=== PATIENT | male | born 1970 | race Caucasian/White ===

== ENCOUNTER 2018-10-21 01:48 | Inpatient (IN) | payer OTHER ==
[~2018-10-21] VITALS: Ht 188 cm; Wt 94.2 kg
[~2018-10-21 01:48] MED LIST: LEVO500T10 PO; METR500T PO
[2018-10-21 02:13] VITALS: Ht 188 cm; Wt 94.2 kg
[2018-10-21 02:36] VITALS: BP 122/79; PULSE 56; RESP 20
[2018-10-21] MEDS ORDERED: ONDANSETRON 4 MG INJ IV PRN (05:00)
[2018-10-21] MEDS ORDERED: ACETAMINOPHEN 325 MG TAB PO PRN (05:00)
[2018-10-21] MEDS: DEXTROSE 5%-0.9% NACL 1,000 ML IV SCH ×3 (05:24→22:01)
[2018-10-21] MEDS: morphine 4 MG/ML VIAL IV PRN ×5 (05:24→21:58)
[2018-10-21] MEDS: metroNIDAZOLE 500 MG/NS (PMX) 100 ML IVPB SCH ×3 (05:27→21:58)
[2018-10-21] MEDS: PANTOPRAZOLE 40 MG INJ IV SCH (05:29)
[2018-10-21] MEDS: PIPER-TAZO 3.375 GM IV (PMX) 100 ML IVPB SCH ×3 (06:54→17:40)
[2018-10-21 07:48] VITALS: BP 111/73; PULSE 63; RESP 19
--- NOTE | 2018-10-21 12:12 | QN ---
Documentation Comment PT SEEN AND EXAMINED DIVINA MUNSON MD Oct 21, 2018 12:12
[2018-10-21 14:26] VITALS: BP 131/63; PULSE 97; RESP 18
[2018-10-21 14:32] VITALS: BP 118/73; PULSE 69; RESP 19
--- NOTE | 2018-10-21 15:18 | CONS ---
DATE OF ADMISSION: 10/21/2018 DATE OF CONSULTATION: 10/21/2018 TYPE OF CONSULTATION: Gastroenterology. HISTORY OF PRESENT ILLNESS: A 48-year-old male went to the emergency room at [facility] com plaining of left lower quadrant abdominal pain. The patient was evaluated in the [facility] with diagnosis of diverticulitis and pyelonephritis made. There was also concern regarding a colove sical fistula. The patient states he is passing air also when he urinates, but no stool is coming ou t. No nausea, no vomiting, no chest pain, no shortness of breath. He does complain of fever with ch ills. 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 FAMILY HISTORY: Nothing significant. SOCIAL HISTORY: Does not drink or smoke. ALLERGIES: NONE. REVIEW OF SYSTEMS: Otherwise negative. PHYSICAL EXAMINATION: GENERAL: Well-built, nourished, not in distress. VITAL SIGNS: Stable. HEENT: Unremarkable. NECK: Supple. No thyromegaly, no lymphadenopathy. CARDIOVASCULAR: No murmur, gallop or click. LUNGS: Clear. ABDOMEN: Soft. Tenderness in the left lower quadrant. No mass felt per abdomen. Bowel sounds are good. EXTREMITIES: No edema. CENTRAL NERVOUS SYSTEM: Grossly within normal limits. LABORATORY DATA: Urine analysis shows WBC greater than 100, RBCs 50 to 100. Urine was cloudy. Leuk ocyte esterase was positive. Mucus plus. WBC count here is 9000. GFR was 62. WBC at [facility] s 15.7. IMPRESSION: 1. Acute diverticulitis. 2. Pyelonephritis. 3. Possible colovesical fistula. PLAN: 1. To continue antibiotic. 2. Once the patient's condition improves, then we will start the patient on a liquid diet and advanc e it. 3. The patient will need a surgical consult for colovesical fistula. Dictated By: EM GIORDANO MD PJ/NTS Conf#: [id number] DID#: [id number] CC: CAREY NOE MD; BINDU MCCAULEY MD;*EndCC*
--- NOTE | 2018-10-21 15:32 | HP ---
DATE OF ADMISSION: 10/21/2018 REASON FOR ADMISSION: Transferred from [facility] due to diverticulitis. HISTORY OF PRESENTING ILLNESS: A 48-year-old male with past medical history of kidney stones, zay mendoza to emergency department of [facility] on 10/20/2018 secondary to severe abdominal pain and left lower quadrant for the last 4 to 5 days. According to the patient, he has had history of kidne y stones. He thought that the pain is because of kidney stones; however, pain was very sharp and lana y persistent. It was in the left lower quadrant and made him worried and came to the emergency depar tment at [facility]. He has been having episodes of nausea, vomiting and diarrhea. According to the patient, he also noticed that he was having air bubbles through his urine. On arrival at [facility], his temperature was 100.7, pulse 106, respirations 20, blood pressure 141/87. The pa tient had labs which showed a potassium of 3.1, BUN of 14, creatinine 1.3. AST, ALT are normal. Lac chung of 1.5. UA showed 100 WBC, 5200 RBCs consistent with UTI and hematuria. The patient also had C T of the abdomen and pelvis that showed mild to moderate sigmoid diverticulitis, has colovesical fist alan and pyelonephritis on the left side. The patient was given Tylenol, IV Zofran, Toradol, morphine , Flagyl, Rocephin, Zosyn and was transferred here due to insurance reasons. PAST MEDICAL HISTORY: Significant for kidney stones, knee surgery and left humerus surgery. ALLERGIES: NONE. PAST SURGICAL HISTORY: Left humerus surgery. SOCIAL HISTORY: Occasionally drinks alcohol. Last drink was a week ago. Denies any smoking, any re creational drug use. FAMILY HISTORY: Noncontributory. The patient works as a green plumber. REVIEW OF SYSTEMS: The patient had severe left lower quadrant pain, episodes of nausea, vomiting, di arrhea, passing bowel gas, had fevers and chills. Denied any dysuria, any urgency, frequency, any he maturia. PHYSICAL EXAMINATION: VITAL SIGNS: Currently temperature 97.1, pulse 56, respirations 20, blood pressure 122/79. GENERAL: The patient is awake, alert, oriented, does not appear to be in any acute distress. HEENT: Pupils are equal, round, reactive to light. NECK: Supple. No JVD. HEART: Regular rate, rhythm. LUNGS: Clear to auscultate bilaterally. ABDOMEN: Some tenderness present at the left lower quadrant and in the epigastric region. Bowel johnnie nds are present. EXTREMITIES: No clubbing, cyanosis or edema. SKIN: The patient has a left humerus surgical scar and multiple tattoos on the chest wall and the ba ck. LABORATORY DATA: Shows BMP within normal limit. White count of 9.7, hemoglobin 13.0, platelet count 173. ASSESSMENT AND PLAN: 1. This is a 48-year-old male who presented with acute abdominal pain, likely secondary to mild to m oderate sigmoid diverticulitis. 2. Air bubbles in the urine with CT scan findings of colovesical fistula. 3. Pyelonephritis on the left side with positive urinalysis. 4. History of kidney stones. 5. History of hypokalemia. PLAN: At this period of time, the patient is admitted to med/surg. The patient will be kept n.p.o., started on IV fluids, Flagyl, Zosyn. We will also check for UA, urine cultures. GI has been consul reji. Urology has been consulted and general surgery will be consulted. Rest of the treatment will d epend on the patient's hospitalization course. Dictated By: DIVINA SINGH/KEENA Conf#: [id number] DID#: [id number] CC: CAREY NOE MD; BINDU MCCAULEY MD;*EndCC*
--- NOTE | 2018-10-21 19:06 | CONS ---
Assessment/Plan Assessment/Plan Hospital Course (Demo Recall) 48-year-old male presented to the emergency room at [facility] with abdominal pain located in the left lower quadrant and radiating toward the left flank area. Patient describes the pain as 10 out of 10 and is associated with the nausea and vomiting as well as diarrhea. The patient underwent a CT scan of the abdomen and pelvis and that was reported as mild to moderate sigmoid diverticulitis and there is resultant colovesical fistula with scattered intramural air bubbles along the superior bladder wall and moderate irregular bladder wall thickening also areas of decreased enhancement within the left kidney with mild perinephric stranding suggestive of pyelonephritis. The patient was transferred to [facility] because of his insurance. On the examination the patient does have left lower quadrant pain as well as left flank pain. The external genitalia are normal. He does urinate dark urine. I tried to load the CD to review his x-rays but it would not load. Impression: Left colo-vesicle fistula. Recommend: Treat the urinary tract infection and once stable she will need resection of the diseased part of the colon. Consultation Date/Type/Reason Admit Date/Time Oct 21, 2018 at 01:48 Date of Consultation: Oct 21, 2018 Type of Consult Urology Reason for Consultation Possible colovesical fistula Requesting Provider: DIVINA MUNSON MD Date/Time of Note DATE: 10/21/18 TIME: 18:54 Hx of Present Illness 48-year-old male presented to the emergency room at [facility] with abdominal pain located in the left lower quadrant and radiating toward the left flank area. Patient describes the pain as 10 out of 10 and is associated with the nausea and vomiting as well as diarrhea. The patient underwent a CT scan of the abdomen and pelvis and that was reported as mild to moderate sigmoid diverticulitis and there is resultant colovesical fistula with scattered intramural air bubbles along the superior bladder wall and moderate irregular bladder wall thickening also areas of decreased enhancement within the left kidney with mild perinephric stranding suggestive of pyelonephritis. The patient was transferred to [facility] because of his insurance. Constitutional: febrile (Temperature 100.7 at the [facility]) Eyes: no complaints ENT: no complaints Respiratory: No shortness of breath Cardiovascular: No chest pain Gastrointestinal: pain (Left side and left lower quadrant), diarrhea, nausea, vomiting Genitourinary: other (Cloudy urine and on multiple occasions pneumaturia) Musculoskeletal: no complaints Skin: no complaints Neurologic: no complaints Endocrine: no complaints Lymphatic: no complaints Psychological: no complaints Past Medical History Medical History: no pertinent history, renal disease (History of kidney stones) Medications Current Medications Dextrose/Sodium Chloride 1,000 ml @ 75 mls/hr [id number] IV Last administered on 10/21/18at 05:24; Admin Dose 75 MLS/HR; Start 10/21/18 at 05:00 Pantoprazole (Protonix Iv) 40 mg DAILY@06 IV Last administered on 10/21/18at 05:29; Admin Dose 40 MG; Start 10/21/18 at 06:00 Acetaminophen (Tylenol Tab) 650 mg Q6H PRN PO MILD PAIN(1-3)OR ELEVATED TEMP; Start 10/21/18 at 05:00 Piperacillin Sod/ Tazobactam Sod 100 ml @ 200 mls/hr Q6 IVPB Last administered on 10/21/18at 17:40; Admin Dose 200 MLS/HR; Start 10/21/18 at 06:00 Metronidazole 100 ml @ 100 mls/hr Q8 IVPB Last administered on 10/21/18at 13:32; Admin Dose 100 MLS/HR; Start 10/21/18 at 06:00 Morphine Sulfate (morphine) 2 mg Q4H PRN IV SEVERE PAIN LEVEL 7-10; Start 10/21/18 at 05:00 Morphine Sulfate (morphine) 4 mg Q4H PRN IV SEVERE PAIN LEVEL 7-10 Last administered on 10/21/18at 17:47; Admin Dose 4 MG; Start 10/21/18 at 05:00 Ondansetron HCl (Zofran Inj) 4 mg Q6H PRN IV NAUSEA AND/OR VOMITING; Start 10/21/18 at 05:00 Allergies: Coded Allergies: No Known Allergy (Unverified , 10/21/18) Past Surgical History Past Surgical Hx: other (Left humerus fracture, history of kidney stones which he passed knee surgery, patellar fracture) Social History Alcohol Use: occasionally Smoking Status: Never smoker Drug Use: none Exam/Review of Systems Exam Vitals Vital Signs Date Temp Pulse Resp B/P (MAP) Pulse Ox O2 O2 Flow FiO2 Time Delivery Rate 10/21/18 98.2 69 19 118/73 98 14:32 (88) 10/21/18 Room Air 02:36 Intake and Output 10/20/18 10/20/18 10/21/18 1515:00 23:00 07:00 IntakeIntake Total 100 ml BalanceBalance 100 ml Constitutional: alert, oriented Psych: no complaints Head: normocephalic Eyes: nl conjunctiva ENMT: nl external ears & nose Neck: supple, non-tender; No nuchal rigidity Respiratory: No wheezing Cardiovascular: No jugular venous distention (JVD) Gastrointestinal: soft, tender (Suprapubic area and left lower quadrant) Genitourinary - Male: nl penis, nl scrotum Musculoskeletal: nl extremities to inspection Extremities: No calf tenderness Neurological: nl mental status Results Result Diagram: 10/21/18 1103 10/21/18 1103 Results 24hrs Laboratory Tests Test 10/21/18 11:03 10/21/18 16:05 White Blood Count 9.7 Red Blood Count 3.99 L Hemoglobin 13.0 L Hematocrit 38.3 L Mean Corpuscular Volume 96.0 Mean Corpuscular Hemoglobin 32.6 Mean Corpuscular Hemoglobin Concent 33.9 Red Cell Distribution Width 12.7 Platelet Count 173 Mean Platelet Volume 10.4 Immature Granulocytes % 0.400 Neutrophils % 79.3 H Lymphocytes % 8.8 L Monocytes % 9.8 Eosinophils % 1.1 Basophils % 0.6 Nucleated Red Blood Cells % 0.0 Immature Granulocytes # 0.040 H Neutrophils # 7.7 H Lymphocytes # 0.9 Monocytes # 1.0 H Eosinophils # 0.1 Basophils # 0.1 Nucleated Red Blood Cells # 0.0 Sodium Level 141 Potassium Level 3.8 Chloride Level 108 Carbon Dioxide Level 27 Anion Gap 6 Blood Urea Nitrogen 15 Creatinine 0.90 Est Glomerular Filtrat Rate mL/min > 60 Glucose Level 111 Calcium Level 7.8 L Total Bilirubin 0.7 Direct Bilirubin 0.00 Indirect Bilirubin 0.7 Aspartate Amino Transf (AST/SGOT) 32 Alanine Aminotransferase (ALT/SGPT) 40 Alkaline Phosphatase 71 Total Protein 6.6 Albumin 3.4 Globulin 3.20 Albumin/Globulin Ratio 1.06 Urine Color YELLOW Urine Clarity CLOUDY A Urine pH 5.0 Urine Specific [place] 1.024 Urine Ketones TRACE A Urine Nitrite NEGATIVE Urine Bilirubin NEGATIVE Urine Urobilinogen NEGATIVE Urine Leukocyte Esterase 3+ H Urine Microscopic RBC 36 H Urine Microscopic WBC > 182 H Urine Bacteria FEW A Urine Hemoglobin 2+ H Urine Glucose NEGATIVE Urine Total Protein 1+ H Imaging Imaging CT scan of the abdomen and pelvis with contrast material was reported as: Mild to moderate sigmoid diverticulitis. There is resultant colovesical fistula with scattered intramural air bubbles along the superior bladder wall and moderate irregular bladder wall thickening Areas of decreased enhancement within the left kidney with mild perinephric stranding suggestive of pyelonephritis. Medications Medication Current Medications Dextrose/Sodium Chloride 1,000 ml @ 75 mls/hr [id number] IV Last administered on 10/21/18at 05:24; Admin Dose 75 MLS/HR; Start 10/21/18 at 05:00 Pantoprazole (Protonix Iv) 40 mg DAILY@06 IV Last administered on 10/21/18at 05:29; Admin Dose 40 MG; Start 10/21/18 at 06:00 Acetaminophen (Tylenol Tab) 650 mg Q6H PRN PO MILD PAIN(1-3)OR ELEVATED TEMP; Start 10/21/18 at 05:00 Piperacillin Sod/ Tazobactam Sod 100 ml @ 200 mls/hr Q6 IVPB Last administered on 10/21/18at 17:40; Admin Dose 200 MLS/HR; Start 10/21/18 at 06:00 Metronidazole 100 ml @ 100 mls/hr Q8 IVPB Last administered on 10/21/18at 13:32; Admin Dose 100 MLS/HR; Start 10/21/18 at 06:00 Morphine Sulfate (morphine) 2 mg Q4H PRN IV SEVERE PAIN LEVEL 7-10; Start 10/21/18 at 05:00 Morphine Sulfate (morphine) 4 mg Q4H PRN IV SEVERE PAIN LEVEL 7-10 Last adminis tered on 10/21/18at 17:47; Admin Dose 4 MG; Start 10/21/18 at 05:00 Ondansetron HCl (Zofran Inj) 4 mg Q6H PRN IV NAUSEA AND/OR VOMITING; Start 10/21/18 at 05:00 BINDU MCCAULEY MD Oct 21, 2018 19:06
[2018-10-21 20:16] VITALS: BP 122/73; PULSE 65; RESP 18
[2018-10-22] MEDS: PIPER-TAZO 3.375 GM IV (PMX) 100 ML IVPB SCH ×4 (00:02→17:38)
[2018-10-22 02:13] VITALS: BP 114/74; PULSE 67; RESP 18
[2018-10-22] MEDS: PANTOPRAZOLE 40 MG INJ IV SCH (05:44)
[2018-10-22] MEDS: metroNIDAZOLE 500 MG/NS (PMX) 100 ML IVPB SCH ×3 (05:45→21:51)
[2018-10-22 07:30] VITALS: BP 122/78; PULSE 66; RESP 15
--- NOTE | 2018-10-22 08:15 | CONS ---
Consult Date/Type/Reason Admit Date/Time Oct 21, 2018 at 01:48 Initial Consult Date 10/21/18 Type of Consultation: Urology Reason for Consultation Colovesical fistula Requesting Provider: DIVINA MUNSON MD Date/Time of Note DATE: 10/22/18 TIME: 08:12 Subjective Patient states he is feeling better and has less pain. He denies having any pneumaturia today Objective Vitals Vital Signs Date Temp Pulse Resp B/P (MAP) Pulse Ox O2 O2 Flow FiO2 Time Delivery Rate 10/22/18 98.6 66 15 122/78 100 Room Air 07:30 (93) Intake and Output 10/21/18 10/21/18 10/22/18 1515:00 23:00 07:00 IntakeIntake Total 300 ml 1200 ml 725 ml OutputOutput Total 600 ml BalanceBalance 300 ml 1200 ml 125 ml Exam Abdomen is soft and the urine is cloudy Results/Medications Result Diagram: 10/22/18 0433 10/22/18 0433 Results 24 hrs Laboratory Tests Test 10/21/18 11:03 10/21/18 16:05 10/22/18 04:33 White Blood Count 9.7 6.8 # Red Blood Count 3.99 L 3.81 L Hemoglobin 13.0 L 12.3 L Hematocrit 38.3 L 36.4 L Mean Corpuscular Volume 96.0 95.5 Mean Corpuscular Hemoglobin 32.6 32.3 Mean Corpuscular Hemoglobin Concent 33.9 33.8 Red Cell Distribution Width 12.7 12.8 Platelet Count 173 194 Mean Platelet Volume 10.4 10.4 Immature Granulocytes % 0.400 0.300 Neutrophils % 79.3 H 64.9 Lymphocytes % 8.8 L 17.6 Monocytes % 9.8 14.1 H Eosinophils % 1.1 2.5 Basophils % 0.6 0.6 Nucleated Red Blood Cells % 0.0 0.0 Immature Granulocytes # 0.040 H 0.020 Neutrophils # 7.7 H 4.4 Lymphocytes # 0.9 1.2 Monocytes # 1.0 H 1.0 H Eosinophils # 0.1 0.2 Basophils # 0.1 0.0 Nucleated Red Blood Cells # 0.0 0.0 Sodium Level 141 143 Potassium Level 3.8 3.4 L Chloride Level 108 109 Carbon Dioxide Level 27 27 Anion Gap 6 7 Blood Urea Nitrogen 15 10 Creatinine 0.90 0.87 Est Glomerular Filtrat Rate mL/min > 60 > 60 Glucose Level 111 110 Calcium Level 7.8 L 7.8 L Total Bilirubin 0.7 0.5 Direct Bilirubin 0.00 0.00 Indirect Bilirubin 0.7 0.5 Aspartate Amino Transf (AST/SGOT) 32 28 Alanine Aminotransferase (ALT/SGPT) 40 33 Alkaline Phosphatase 71 64 Total Protein 6.6 6.1 Albumin 3.4 3.1 L Globulin 3.20 3.00 Albumin/Globulin Ratio 1.06 1.03 Urine Color YELLOW Urine Clarity CLOUDY A Urine pH 5.0 Urine Specific [place] 1.024 Urine Ketones TRACE A Urine Nitrite NEGATIVE Urine Bilirubin NEGATIVE Urine Urobilinogen NEGATIVE Urine Leukocyte Esterase 3+ H Urine Microscopic RBC 36 H Urine Microscopic WBC > 182 H Urine Bacteria FEW A Urine Hemoglobin 2+ H Urine Glucose NEGATIVE Urine Total Protein 1+ H Phosphorus Level 2.3 L Magnesium Level 1.8 Medications Current Medications Dextrose/Sodium Chloride 1,000 ml @ 75 mls/hr [id number] IV Last administered on 10/21/18at 22:01; Admin Dose 75 MLS/HR; Start 10/21/18 at 05:00 Pantoprazole (Protonix Iv) 40 mg DAILY@06 IV Last administered on 10/22/18at 05:44; Admin Dose 40 MG; Start 10/21/18 at 06:00 Acetaminophen (Tylenol Tab) 650 mg Q6H PRN PO MILD PAIN(1-3)OR ELEVATED TEMP; Start 10/21/18 at 05:00 Piperacillin Sod/ Tazobactam Sod 100 ml @ 200 mls/hr Q6 IVPB Last administered on 10/22/18at 06:55; Admin Dose 200 MLS/HR; Start 10/21/18 at 06:00 Metronidazole 100 ml @ 100 mls/hr Q8 IVPB Last administered on 10/22/18at 05:45; Admin Dose 100 MLS/HR; Start 10/21/18 at 06:00 Morphine Sulfate (morphine) 2 mg Q4H PRN IV SEVERE PAIN LEVEL 7-10; Start 10/21/18 at 05:00 Morphine Sulfate (morphine) 4 mg Q4H PRN IV SEVERE PAIN LEVEL 7-10 Last administered on 10/21/18at 21:58; Admin Dose 4 MG; Start 10/21/18 at 05:00 Ondansetron HCl (Zofran Inj) 4 mg Q6H PRN IV NAUSEA AND/OR VOMITING; Start 10/21/18 at 05:00 Assessment/Plan Hospital Course (Demo Recall) 48-year-old male presented to the emergency room at [facility] with abdominal pain located in the left lower quadrant and radiating toward the left flank area. Patient describes the pain as 10 out of 10 and is associated with the nausea and vomiting as well as diarrhea. The patient underwent a CT scan of the abdomen and pelvis and that was reported as mild to moderate sigmoid diverticulitis and there is resultant colovesical fistula with scattered intramural air bubbles along the superior bladder wall and moderate irregular bladder wall thickening also areas of decreased enhancement within the left kidney with mild perinephric stranding suggestive of pyelonephritis. The patient was transferred to [facility] because of his insurance. On the examination the patient did have left lower quadrant pain as well as left flank pain. Patient is feeling better and there is no pneumaturia today. The urine is cloudy. Urine culture is pending. Continue IV antibiotic. BINDU MCCAULEY MD Oct 22, 2018 08:15
--- NOTE | 2018-10-22 10:52 | CONS ---
Assessment/Plan Assessment/Plan Hospital Course (Demo Recall) 1. Diverticulitis with colovesical fistula: Had lengthy discussion with patient regarding surgical intervention, at this time he prefers conservative management and avoid surgery. -antibiotics per GI/ -Diverticulitis management per GI -N.p.o. -TPN okay 2. Normocytic normochromic anemia: -Monitor and transfuse as needed 3. Hypokalemia -Replete and monitor 4. Abnormal UA: 2/2 #1 -abx per sensitivity -frequent bladder emptying/cath care -As above 5. Overweight BMI: 27 -diet and exercise optimization -encourage weight loss Thank you. Patient seen and examined in collaboration with Dr. Ventura Jamison. Consultation Date/Type/Reason Admit Date/Time Oct 21, 2018 at 01:48 Date of Consultation: Oct 22, 2018 Type of Consult surgical Reason for Consultation colovesical fistula Requesting Provider: DIVINA MUNSON MD Date/Time of Note DATE: 10/22/18 TIME: 10:38 Hx of Present Illness Jonah Macdonald is a 48-year-old man with past medical history of kidney stones, knee surgery and left humerus surgery who presented to outside hospital with complaints of abdominal pain abdominal pain is noted to be sharp in nature predominantly in the mid abdomen with radiation to the left lower quadrant and back. Associated symptoms include fevers,nausea with vomiting, nonbloody emesis as well as diarrhea. Abdominal pain has persisted for 5 days prior to seeking help in the ED. While at outside hospital, further imaging was obtained which showed mild to moderate sigmoid diverticulitis with resultant colovesical fistula with scattered intramural air bubbles along superior bladder wall and moderate irregular bladder wall thickening. Laboratory findings were unremarkable. General surgery was asked to evaluate. 12 point review of systems was performed and is negative except for as stated in HPI. Past Medical History As above Medical History: renal disease (History of kidney stones) Medications Current Medications Dextrose/Sodium Chloride 1,000 ml @ 75 mls/hr [id number] IV Last administered on 10/21/18at 22:01; Admin Dose 75 MLS/HR; Start 10/21/18 at 05:00 Pantoprazole (Protonix Iv) 40 mg DAILY@06 IV Last administered on 10/22/18at 05:44; Admin Dose 40 MG; Start 10/21/18 at 06:00 Acetaminophen (Tylenol Tab) 650 mg Q6H PRN PO MILD PAIN(1-3)OR ELEVATED TEMP; Start 10/21/18 at 05:00 Piperacillin Sod/ Tazobactam Sod 100 ml @ 200 mls/hr Q6 IVPB Last administered on 10/22/18at 06:55; Admin Dose 200 MLS/HR; Start 10/21/18 at 06:00 Metronidazole 100 ml @ 100 mls/hr Q8 IVPB Last administered on 10/22/18at 05:45; Admin Dose 100 MLS/HR; Start 10/21/18 at 06:00 Morphine Sulfate (morphine) 2 mg Q4H PRN IV SEVERE PAIN LEVEL 7-10; Start 10/21/18 at 05:00 Morphine Sulfate (morphine) 4 mg Q4H PRN IV SEVERE PAIN LEVEL 7-10 Last administered on 10/21/18at 21:58; Admin Dose 4 MG; Start 10/21/18 at 05:00 Ondansetron HCl (Zofran Inj) 4 mg Q6H PRN IV NAUSEA AND/OR VOMITING; Start 10/21/18 at 05:00 Potassium Phosphate 20 meq/ Sodium Chloride 254.5455 ml @ 63.636 m... ONCE ONCE IVPB ; Start 10/22/18 at 11:00; Stop 10/22/18 at 14:59 Allergies: Coded Allergies: No Known Allergy (Unverified , 10/21/18) Past Surgical History As above Past Surgical Hx: other (Left humerus fracture, history of kidney stones which he passed knee surgery, patellar fracture) Family History Significant Family History: no pertinent family hx Social History Alcohol Use: occasionally Smoking Status: Never smoker Drug Use: none Exam/Review of Systems Exam Vitals Vital Signs Date Temp Pulse Resp B/P (MAP) Pulse Ox O2 O2 Flow FiO2 Time Delivery Rate 10/22/18 98.6 66 15 122/78 100 Room Air 07:30 (93) Intake and Output 10/21/18 10/21/18 10/22/18 1515:00 23:00 07:00 IntakeIntake Total 300 ml 1200 ml 725 ml OutputOutput Total 600 ml BalanceBalance 300 ml 1200 ml 125 ml Constitutional: alert, oriented Psych: nl mood/affect; No anxiety Head: normocephalic, atraumatic Eyes: nl conjunctiva, EOMI, nl lids, nl sclera ENMT: nl external ears & nose, nl lips & teeth, mucosa pink and moist Neck: supple, non-tender; No jvd Respiratory: normal air movement; No congested cough Cardiovascular: regular rate and rhythm, nl pulses; No edema Gastrointestinal: soft, tender (Minimal left lower quadrant much improved); No distended, No firm Musculoskeletal: nl extremities to inspection, nl gait and stance Extremities: normal pulses Neurological: nl mental status, nl speech, nl strength Skin: No rash or lesions Results Result Diagram: 10/22/183 10/22/18432 Results 24hrs Laboratory Tests Test 10/21/18 11:03 10/21/18 16:05 10/22/18 04:33 White Blood Count 9.7 6.8 # Red Blood Count 3.99 L 3.81 L Hemoglobin 13.0 L 12.3 L Hematocrit 38.3 L 36.4 L Mean Corpuscular Volume 96.0 95.5 Mean Corpuscular Hemoglobin 32.6 32.3 Mean Corpuscular Hemoglobin Concent 33.9 33.8 Red Cell Distribution Width 12.7 12.8 Platelet Count 173 194 Mean Platelet Volume 10.4 10.4 Immature Granulocytes % 0.400 0.300 Neutrophils % 79.3 H 64.9 Lymphocytes % 8.8 L 17.6 Monocytes % 9.8 14.1 H Eosinophils % 1.1 2.5 Basophils % 0.6 0.6 Nucleated Red Blood Cells % 0.0 0.0 Immature Granulocytes # 0.040 H 0.020 Neutrophils # 7.7 H 4.4 Lymphocytes # 0.9 1.2 Monocytes # 1.0 H 1.0 H Eosinophils # 0.1 0.2 Basophils # 0.1 0.0 Nucleated Red Blood Cells # 0.0 0.0 Sodium Level 141 143 Potassium Level 3.8 3.4 L Chloride Level 108 109 Carbon Dioxide Level 27 27 Anion Gap 6 7 Blood Urea Nitrogen 15 10 Creatinine 0.90 0.87 Est Glomerular Filtrat Rate mL/min > 60 > 60 Glucose Level 111 110 Calcium Level 7.8 L 7.8 L Total Bilirubin 0.7 0.5 Direct Bilirubin 0.00 0.00 Indirect Bilirubin 0.7 0.5 Aspartate Amino Transf (AST/SGOT) 32 28 Alanine Aminotransferase (ALT/SGPT) 40 33 Alkaline Phosphatase 71 64 Total Protein 6.6 6.1 Albumin 3.4 3.1 L Globulin 3.20 3.00 Albumin/Globulin Ratio 1.06 1.03 Urine Color YELLOW Urine Clarity CLOUDY A Urine pH 5.0 Urine Specific [place] 1.024 Urine Ketones TRACE A Urine Nitrite NEGATIVE Urine Bilirubin NEGATIVE Urine Urobilinogen NEGATIVE Urine Leukocyte Esterase 3+ H Urine Microscopic RBC 36 H Urine Microscopic WBC > 182 H Urine Bacteria FEW A Urine Hemoglobin 2+ H Urine Glucose NEGATIVE Urine Total Protein 1+ H Phosphorus Level 2.3 L Magnesium Level 1.8 Medications Medication Current Medications Dextrose/Sodium Chloride 1,000 ml @ 75 mls/hr [id number] IV Last administered on 10/21/18at 22:01; Admin Dose 75 MLS/HR; Start 10/21/18 at 05:00 Pantoprazole (Protonix Iv) 40 mg DAILY@06 IV Last administered on 10/22/18at 05:44; Admin Dose 40 MG; Start 10/21/18 at 06:00 Acetaminophen (Tylenol Tab) 650 mg Q6H PRN PO MILD PAIN(1-3)OR ELEVATED TEMP; Start 10/21/18 at 05:00 Piperacillin Sod/ Tazobactam Sod 100 ml @ 200 mls/hr Q6 IVPB Last administered on 10/22/18at 06:55; Admin Dose 200 MLS/HR; Start 10/21/18 at 06:00 Metronidazole 100 ml @ 100 mls/hr Q8 IVPB Last administered on 10/22/18at 05:45; Admin Dose 100 MLS/HR; Start 10/21/18 at 06:00 Morphine Sulfate (morphine) 2 mg Q4H PRN IV SEVERE PAIN LEVEL 7-10; Start 10/21/18 at 05:00 Morphine Sulfate (morphine) 4 mg Q4H PRN IV SEVERE PAIN LEVEL 7-10 Last administered on 10/21/18at 21:58; Admin Dose 4 MG; Start 10/21/18 at 05:00 Ondansetron HCl (Zofran Inj) 4 mg Q6H PRN IV NAUSEA AND/OR VOMITING; Start 10/21/18 at 05:00 Potassium Phosphate 20 meq/ Sodium Chloride 254.5455 ml @ 63.636 m... ONCE ONCE IVPB ; Start 10/22/18 at 11:00; Stop 10/22/18 at 14:59 ARIELLE VAZQUEZ [employer]IN[employer] Oct 22, 2018 10:51
[2018-10-22] MEDS ORDERED: POTASSIUM PHOSPHATE 20 MEQ in SOD CHLORIDE 0.9% 250 ML IVPB ONE (11:00)
[2018-10-22] MEDS: morphine 4 MG/ML VIAL IV PRN ×3 (11:28→19:49)
--- NOTE | 2018-10-22 11:54 | PN ---
Date/Time of Note Date/Time of Note DATE: 10/22/18 TIME: 11:51 Assessment/Plan VTE Prophylaxis Risk score (from Ns)>0 risk: 1 SCD applied (from Ns): Yes Pharmacological prophylaxis: NA/contraindicated Pharm contraindication: low risk/ambulating Lines/Catheters IV [facility] Type (from [facility] Peripheral IV Urinary Cath still in place: No Assessment/Plan Assessment/Plan This is a 48-year-old male who presented with 1 acute abdominal pain, likely secondary to mild to moderate sigmoid diverticulitis. 2. Air bubbles in the urine with CT scan findings of colovesical fistula. with diverticulitis 3. Pyelonephritis on the left side with positive urinalysis. 4. History of kidney stones. 5. Hypokalemia 6 UTI plan -he is refusing surgery. -N.p.o./IV fluids -cw with Zosyn and Flagyl - ? TPN - FU GI/Surgery/urology recs - replete K Result Diagram: 10/22/18 0433 10/22/18 0433 Results 24hrs Laboratory Tests Test 10/21/18 16:05 10/22/18 04:33 Urine Color YELLOW Urine Clarity CLOUDY A Urine pH 5.0 Urine Specific [place] 1.024 Urine Ketones TRACE A Urine Nitrite NEGATIVE Urine Bilirubin NEGATIVE Urine Urobilinogen NEGATIVE Urine Leukocyte Esterase 3+ H Urine Microscopic RBC 36 H Urine Microscopic WBC > 182 H Urine Bacteria FEW A Urine Hemoglobin 2+ H Urine Glucose NEGATIVE Urine Total Protein 1+ H White Blood Count 6.8 # Red Blood Count 3.81 L Hemoglobin 12.3 L Hematocrit 36.4 L Mean Corpuscular Volume 95.5 Mean Corpuscular Hemoglobin 32.3 Mean Corpuscular Hemoglobin Concent 33.8 Red Cell Distribution Width 12.8 Platelet Count 194 Mean Platelet Volume 10.4 Immature Granulocytes % 0.300 Neutrophils % 64.9 Lymphocytes % 17.6 Monocytes % 14.1 H Eosinophils % 2.5 Basophils % 0.6 Nucleated Red Blood Cells % 0.0 Immature Granulocytes # 0.020 Neutrophils # 4.4 Lymphocytes # 1.2 Monocytes # 1.0 H Eosinophils # 0.2 Basophils # 0.0 Nucleated Red Blood Cells # 0.0 Sodium Level 143 Potassium Level 3.4 L Chloride Level 109 Carbon Dioxide Level 27 Anion Gap 7 Blood Urea Nitrogen 10 Creatinine 0.87 Est Glomerular Filtrat Rate mL/min > 60 Glucose Level 110 Calcium Level 7.8 L Phosphorus Level 2.3 L Magnesium Level 1.8 Total Bilirubin 0.5 Direct Bilirubin 0.00 Indirect Bilirubin 0.5 Aspartate Amino Transf (AST/SGOT) 28 Alanine Aminotransferase (ALT/SGPT) 33 Alkaline Phosphatase 64 Total Protein 6.1 Albumin 3.1 L Globulin 3.00 Albumin/Globulin Ratio 1.03 Subjective 24 Hr Interval Summary Free Text/Dictation Patient is doing better abdominal pain is improved According to him did not notice any bubbles in the urine Exam/Review of Systems Exam Vitals Vital Signs Date Temp Pulse Resp B/P (MAP) Pulse Ox O2 O2 Flow FiO2 Time Delivery Rate 10/22/18 98.6 66 15 122/78 100 Room Air 07:30 (93) Intake and Output 10/21/18 10/21/18 10/22/18 1515:00 23:00 07:00 IntakeIntake Total 300 ml 1200 ml 725 ml OutputOutput Total 600 ml BalanceBalance 300 ml 1200 ml 125 ml Exam GENERAL: The patient is awake, alert, oriented, does not appear to be in any acute distress. HEENT: Pupils are equal, round, reactive to light. NECK: Supple. No JVD. HEART: Regular rate, rhythm. LUNGS: Clear to auscultate bilaterally. ABDOMEN: Some tenderness present at the left lower quadrant and in the epigastric region. Bowel sounds are present. EXTREMITIES: No clubbing, cyanosis or edema. SKIN: The patient has a left humerus surgical scar and multiple tattoos on the chest wall and the back. Results Results 24hrs Laboratory Tests Test 10/21/18 16:05 10/22/18 04:33 Urine Color YELLOW Urine Clarity CLOUDY A Urine pH 5.0 Urine Specific [place] 1.024 Urine Ketones TRACE A Urine Nitrite NEGATIVE Urine Bilirubin NEGATIVE Urine Urobilinogen NEGATIVE Urine Leukocyte Esterase 3+ H Urine Microscopic RBC 36 H Urine Microscopic WBC > 182 H Urine Bacteria FEW A Urine Hemoglobin 2+ H Urine Glucose NEGATIVE Urine Total Protein 1+ H White Blood Count 6.8 # Red Blood Count 3.81 L Hemoglobin 12.3 L Hematocrit 36.4 L Mean Corpuscular Volume 95.5 Mean Corpuscular Hemoglobin 32.3 Mean Corpuscular Hemoglobin Concent 33.8 Red Cell Distribution Width 12.8 Platelet Count 194 Mean Platelet Volume 10.4 Immature Granulocytes % 0.300 Neutrophils % 64.9 Lymphocytes % 17.6 Monocytes % 14.1 H Eosinophils % 2.5 Basophils % 0.6 Nucleated Red Blood Cells % 0.0 Immature Granulocytes # 0.020 Neutrophils # 4.4 Lymphocytes # 1.2 Monocytes # 1.0 H Eosinophils # 0.2 Basophils # 0.0 Nucleated Red Blood Cells # 0.0 Sodium Level 143 Potassium Level 3.4 L Chloride Level 109 Carbon Dioxide Level 27 Anion Gap 7 Blood Urea Nitrogen 10 Creatinine 0.87 Est Glomerular Filtrat Rate mL/min > 60 Glucose Level 110 Calcium Level 7.8 L Phosphorus Level 2.3 L Magnesium Level 1.8 Total Bilirubin 0.5 Direct Bilirubin 0.00 Indirect Bilirubin 0.5 Aspartate Amino Transf (AST/SGOT) 28 Alanine Aminotransferase (ALT/SGPT) 33 Alkaline Phosphatase 64 Total Protein 6.1 Albumin 3.1 L Globulin 3.00 Albumin/Globulin Ratio 1.03 Medications Medication Current Medications Dextrose/Sodium Chloride 1,000 ml @ 75 mls/hr [id number] IV Last administered on 10/21/18at 22:01; Admin Dose 75 MLS/HR; Start 10/21/18 at 05:00 Pantoprazole (Protonix Iv) 40 mg DAILY@06 IV Last administered on 10/22/18 05:44; Admin Dose 40 MG; Start 10/21/18 at 06:00 Acetaminophen (Tylenol Tab) 650 mg Q6H PRN PO MILD PAIN(1-3)OR ELEVATED TEMP; Start 10/21/18 at 05:00 Piperacillin Sod/ Tazobactam Sod 100 ml @ 200 mls/hr Q6 IVPB Last administered on 10/22/18at 11:28; Admin Dose 200 MLS/HR; Start 10/21/18 at 06:00 Metronidazole 100 ml @ 100 mls/hr Q8 IVPB Last administered on 10/22/18 05:45; Admin Dose 100 MLS/HR; Start 10/21/18 at 06:00 Morphine Sulfate (morphine) 2 mg Q4H PRN IV SEVERE PAIN LEVEL 7-10; Start 10/21/18 at 05:00 Morphine Sulfate (morphine) 4 mg Q4H PRN IV SEVERE PAIN LEVEL 7-10 Last administered on 10/22/18 11:28; Admin Dose 4 MG; Start 10/21/18 at 05:00 Ondansetron HCl (Zofran Inj) 4 mg Q6H PRN IV NAUSEA AND/OR VOMITING; Start 10/21/18 at 05:00 Potassium Phosphate 20 meq/ Sodium Chloride 254.5455 ml @ 63.636 m... ONCE ONCE IVPB ; Start 10/22/18 at 11:00; Stop 10/22/18 at 14:59 DIVINA MUNSON MD Oct 22, 2018 11:54
[2018-10-22] MEDS: FAT EMULSION 20% 250 ML IV SCH (13:58)
[2018-10-22 14:11] VITALS: BP 130/79; PULSE 56; RESP 15
--- NOTE | 2018-10-22 14:49 | CONS ---
Assessment/Plan Assessment/Plan Assessment/Plan (Daily) IMPRESSION: 1. Acute diverticulitis. 2. Pyelonephritis. 3. Possible colovesical fistula. PLAN: 1. To continue antibiotic. 2. Clear liquid diet 3. Patient will need colonoscopy 6 weeks down the line Consultation Date/Type/Reason Admit Date/Time Oct 21, 2018 at 01:48 Initial Consult Date 10/22/18 Requesting Provider: DIVINA MUNSON MD Date/Time of Note DATE: 10/22/18 TIME: 14:48 24 HR Interval Summary Free Text/Dictation Patient's abdominal pain is reduced and there is no pneumaturia. Urine is still cloudy Constitutional: improved Exam/Review of Systems Exam Vitals Vital Signs Date Temp Pulse Resp B/P (MAP) Pulse Ox O2 O2 Flow FiO2 Time Delivery Rate 10/22/18 98.2 56 15 130/79 100 Room Air 14:11 (96) Intake and Output 10/21/18 10/21/18 10/22/18 1515:00 23:00 07:00 IntakeIntake Total 300 ml 1200 ml 725 ml OutputOutput Total 600 ml BalanceBalance 300 ml 1200 ml 125 ml Constitutional: alert, oriented, well developed Psych: no complaints, nl mood/affect Head: normocephalic, atraumatic Eyes: nl conjunctiva, EOMI, nl lids, nl sclera, PERRL ENMT: nl external ears & nose, nl lips & teeth, nl nasal mucosa & septum Neck: supple, non-tender Respiratory: clear to auscultation, normal air movement Cardiovascular: regular rate and rhythm, nl pulses Gastrointestinal: soft, nl liver, spleen, non-tender Musculoskeletal: nl extremities to inspection, nl gait and stance Extremities: normal pulses Neurological: J[employer] II-XII intact, nl mental status, nl speech, nl strength Skin: nl turgor; No rash or lesions Lymph: nl lymph nodes Results Result Diagram: 10/22/183 10/22/18432 Results 24hrs Laboratory Tests Test 10/21/18 16:05 10/22/18 04:33 Urine Color YELLOW Urine Clarity CLOUDY A Urine pH 5.0 Urine Specific [place] 1.024 Urine Ketones TRACE A Urine Nitrite NEGATIVE Urine Bilirubin NEGATIVE Urine Urobilinogen NEGATIVE Urine Leukocyte Esterase 3+ H Urine Microscopic RBC 36 H Urine Microscopic WBC > 182 H Urine Bacteria FEW A Urine Hemoglobin 2+ H Urine Glucose NEGATIVE Urine Total Protein 1+ H White Blood Count 6.8 # Red Blood Count 3.81 L Hemoglobin 12.3 L Hematocrit 36.4 L Mean Corpuscular Volume 95.5 Mean Corpuscular Hemoglobin 32.3 Mean Corpuscular Hemoglobin Concent 33.8 Red Cell Distribution Width 12.8 Platelet Count 194 Mean Platelet Volume 10.4 Immature Granulocytes % 0.300 Neutrophils % 64.9 Lymphocytes % 17.6 Monocytes % 14.1 H Eosinophils % 2.5 Basophils % 0.6 Nucleated Red Blood Cells % 0.0 Immature Granulocytes # 0.020 Neutrophils # 4.4 Lymphocytes # 1.2 Monocytes # 1.0 H Eosinophils # 0.2 Basophils # 0.0 Nucleated Red Blood Cells # 0.0 Sodium Level 143 Potassium Level 3.4 L Chloride Level 109 Carbon Dioxide Level 27 Anion Gap 7 Blood Urea Nitrogen 10 Creatinine 0.87 Est Glomerular Filtrat Rate mL/min > 60 Glucose Level 110 Calcium Level 7.8 L Phosphorus Level 2.3 L Magnesium Level 1.8 Total Bilirubin 0.5 Direct Bilirubin 0.00 Indirect Bilirubin 0.5 Aspartate Amino Transf (AST/SGOT) 28 Alanine Aminotransferase (ALT/SGPT) 33 Alkaline Phosphatase 64 Total Protein 6.1 Albumin 3.1 L Globulin 3.00 Albumin/Globulin Ratio 1.03 Medications Medication Current Medications Dextrose/Sodium Chloride 1,000 ml @ 75 mls/hr [id number] IV Last administered on 10/21/18 22:01; Admin Dose 75 MLS/HR; Start 10/21/18 at 05:00 Pantoprazole (Protonix Iv) 40 mg DAILY@06 IV Last administered on 10/22/18 05:44; Admin Dose 40 MG; Start 10/21/18 at 06:00 Acetaminophen (Tylenol Tab) 650 mg Q6H PRN PO MILD PAIN(1-3)OR ELEVATED TEMP; Start 10/21/18 at 05:00 Piperacillin Sod/ Tazobactam Sod 100 ml @ 200 mls/hr Q6 IVPB Last administered on 10/22/18at 11:28; Admin Dose 200 MLS/HR; Start 10/21/18 at 06:00 Metronidazole 100 ml @ 100 mls/hr Q8 IVPB Last administered on 10/22/18at 13:53; Admin Dose 100 MLS/HR; Start 10/21/18 at 06:00 Morphine Sulfate (morphine) 2 mg Q4H PRN IV SEVERE PAIN LEVEL 7-10; Start at 05:00 Morphine Sulfate (morphine) 4 mg Q4H PRN IV SEVERE PAIN LEVEL 7-10 Last administered on 10/22/18at 11:28; Admin Dose 4 MG; Start 10/21/18 at 05:00 Ondansetron HCl (Zofran Inj) 4 mg Q6H PRN IV NAUSEA AND/OR VOMITING; Start 10/21/18 at 05:00 Potassium Phosphate 20 meq/ Sodium Chloride 254.5455 ml @ 63.636 m... ONCE ONCE IVPB Last administered on 10/22/18at 12:05; Admin Dose 63.636 MLS/HR; Start 10/22/18 at 11:00; Stop 10/22/18 at 14:59 Fat Emulsion Intravenous 250 ml @ 10.4 mls/hr DAILY IV Last administered on 10/22/18at 13:58; Admin Dose 10.4 MLS/HR; Start 10/22/18 at 13:00 EM GIORDANO MD Oct 22, 2018 14:49
[2018-10-22] MEDS: DEXTROSE 5%-0.9% NACL 1,000 ML IV SCH (17:41)
[2018-10-22 19:50] VITALS: BP 127/77; PULSE 59; RESP 20
[2018-10-23] MEDS: morphine 4 MG/ML VIAL IV PRN ×5 (00:22→22:45)
[2018-10-23] MEDS: PIPER-TAZO 3.375 GM IV (PMX) 100 ML IVPB SCH ×5 (00:23→22:53)
[2018-10-23 02:15] VITALS: BP 125/78; PULSE 56; RESP 20
[2018-10-23] MEDS: metroNIDAZOLE 500 MG/NS (PMX) 100 ML IVPB SCH ×3 (05:03→20:25)
[2018-10-23] MEDS: PANTOPRAZOLE 40 MG INJ IV SCH (05:04)
[2018-10-23 08:13] VITALS: BP 146/81; PULSE 61; RESP 20
[2018-10-23] MEDS: DEXTROSE 5%-0.9% NACL 1,000 ML IV SCH ×2 (08:46→20:28)
--- NOTE | 2018-10-23 09:36 | PN ---
Date/Time of Note Date/Time of Note DATE: 10/23/18 TIME: 09:36 Assessment/Plan VTE Prophylaxis Risk score (from Ns)>0 risk: 1 SCD applied (from Ns): Yes Pharmacological prophylaxis: NA/contraindicated Pharm contraindication: low risk/ambulating Lines/Catheters IV Catheter Type (from [facility]): Peripheral IV Urinary Cath still in place: No Assessment/Plan Assessment/Plan is is a 48-year-old male who presented with 1 acute abdominal pain, likely secondary to mild to moderate sigmoid diverticulitis. 2. Air bubbles in the urine with CT scan findings of colovesical fistula. with diverticulitis 3. Pyelonephritis on the left side with positive urinalysis. 4. History of kidney stones. 5. Hypokalemia 6 UTI plan -he is refusing surgery. -Initially spoke to surgery who wanted to get a repeat CT of the abdomen and pelvis to see if the fistula has closed however on clinical examination per per Dr. Jamison recommended starting the patient on clear liquid diet weekly patient had improved -cw with Zosyn and Flagyl -Will not need TPN - cw iv fluids - FU GI/Surgery/urology recs - replete K Result Diagram: 10/22/18 0433 10/23/18 0442 Results 24hrs Laboratory Tests Test 10/23/18 04:42 Sodium Level 140 Potassium Level 3.5 Chloride Level 107 Carbon Dioxide Level 29 Anion Gap 4 L Blood Urea Nitrogen 8 Creatinine 0.84 Est Glomerular Filtrat Rate mL/min > 60 Glucose Level 107 Calcium Level 8.2 L Phosphorus Level 3.1 Magnesium Level 1.8 Subjective 24 Hr Interval Summary Free Text/Dictation Clinically patient feels a lot better pain has improved Exam/Review of Systems Exam Vitals Vital Signs Date Temp Pulse Resp B/P (MAP) Pulse Ox O2 O2 Flow FiO2 Time Delivery Rate 10/23/18 97.7 61 20 146/81 99 Room Air 08:13 (102) Intake and Output 10/22/18 10/22/18 10/23/18 1515:00 23:00 07:00 IntakeIntake Total 300 ml 971.1455 ml 1225 ml OutputOutput Total 500 ml BalanceBalance 300 ml 971.1455 ml 725 ml Exam Exam GENERAL: The patient is awake, alert, oriented, does not appear to be in any acute distress. HEENT: Pupils are equal, round, reactive to light. NECK: Supple. No JVD. HEART: Regular rate, rhythm. LUNGS: Clear to auscultate bilaterally. ABDOMEN: Some tenderness present at the left lower quadrant and in the epigastric region resolved. Bowel sounds are present. EXTREMITIES: No clubbing, cyanosis or edema. SKIN: The patient has a left humerus surgical scar and multiple tattoos on the chest wall and the back. Results Results 24hrs Laboratory Tests Test 10/23/18 04:42 Sodium Level 140 Potassium Level 3.5 Chloride Level 107 Carbon Dioxide Level 29 Anion Gap 4 L Blood Urea Nitrogen 8 Creatinine 0.84 Est Glomerular Filtrat Rate mL/min > 60 Glucose Level 107 Calcium Level 8.2 L Phosphorus Level 3.1 Magnesium Level 1.8 Medications Medication Current Medications Dextrose/Sodium Chloride 1,000 ml @ 75 mls/hr [id number] IV Last administered on 10/23/18at 08:46; Admin Dose 75 MLS/HR; Start 10/21/18 at 05:00 Pantoprazole (Protonix Iv) 40 mg DAILY@06 IV Last administered on 10/23/18at 05:04; Admin Dose 40 MG; Start 10/21/18 at 06:00 Acetaminophen (Tylenol Tab) 650 mg Q6H PRN PO MILD PAIN(1-3)OR ELEVATED TEMP; Start 10/21/18 at 05:00 Piperacillin Sod/ Tazobactam Sod 100 ml @ 200 mls/hr Q6 IVPB Last administered on 10/23/18at 06:21; Admin Dose 200 MLS/HR; Start 10/21/18 at 06:00 Metronidazole 100 ml @ 100 mls/hr Q8 IVPB Last administered on 10/23/18at 05:03; Admin Dose 100 MLS/HR; Start 10/21/18 at 06:00 Morphine Sulfate (morphine) 2 mg Q4H PRN IV SEVERE PAIN LEVEL 7-10; Start 10/21/18 at 05:00 Morphine Sulfate (morphine) 4 mg Q4H PRN IV SEVERE PAIN LEVEL 7-10 Last administered on 10/23/18at 08:59; Admin Dose 4 MG; Start 10/21/18 at 05:00 Ondansetron HCl (Zofran Inj) 4 mg Q6H PRN IV NAUSEA AND/OR VOMITING; Start 10/21/18 at 05:00 Fat Emulsion Intravenous 250 ml @ 10.4 mls/hr DAILY IV Last administered on 10/22/18at 13:58; Admin Dose 10.4 MLS/HR; Start 10/22/18 at 13:00 DIVINA MUNSON MD Oct 23, 2018 09:36
[2018-10-23] MEDS ORDERED: IOHEXOL 14.3 MG(I)/ML (ADULT) BTL PO ONE (12:30)
[2018-10-23] MEDS: FAT EMULSION 20% 250 ML IV SCH (13:10)
[2018-10-23 14:54] VITALS: BP 131/83; PULSE 55; RESP 18
--- NOTE | 2018-10-23 16:57 | PN ---
Date/Time of Note Date/Time of Note DATE: 10/23/18 TIME: 16:54 Assessment/Plan Lines/Catheters IV Catheter Type (from [email or web address] Peripheral IV Waldron in Place (from [facility] [[email or web address] No Assessment/Plan Chief Complaint/Hosp Course 1. Diverticulitis with colovesical fistula: Had lengthy discussion with patient regarding surgical intervention, at this time he prefers conservative management and avoid surgery. -antibiotics per GI/ -Diverticulitis management per GI -clear liquid diet -close monitoring 2. Normocytic normochromic anemia: -Monitor and transfuse as needed 3. Hypokalemia: normalized -Replete and monitor 4. Abnormal UA: 2/ #1 -abx per sensitivity -frequent bladder emptying/cath care -As above 5. Overweight BMI: 27 -diet and exercise optimization -encourage weight loss Thank you. Patient seen and examined in collaboration with Dr. Ventura Jamiosn. Subjective 24 Hr Interval Summary Feels well. No fevers, chills, sob, congested cough, cp, palpitations, mallory, dizziness, n/v/d/dysuria. No noted pneumaturia. Exam/Review of Systems Vital Signs Vitals Vital Signs Date Temp Pulse Resp B/P (MAP) Pulse Ox O2 O2 Flow FiO2 Time Delivery Rate 10/23/18 98.1 55 18 131/83 98 Room Air 14:54 (99) Intake and Output 10/22/18 10/22/18 10/23/18 1515:00 23:00 07:00 IntakeIntake Total 300 ml 971.1455 ml 1225 ml OutputOutput Total 500 ml BalanceBalance 300 ml 971.1455 ml 725 ml Exam Free Text/Dictation Constitutional: alert, oriented Psych: nl mood/affect; No anxiety Head: normocephalic, atraumatic Eyes: nl conjunctiva, EOMI, nl lids, nl sclera ENMT: nl external ears & nose, nl lips & teeth, mucosa pink and moist Neck: supple, non-tender; No jvd Respiratory: normal air movement; No congested cough Cardiovascular: regular rate and rhythm, nl pulses; No edema Gastrointestinal: soft, tender (Minimal left lower quadrant-much improved); No distended, No firm Musculoskeletal: nl extremities to inspection, nl gait and stance Extremities: normal pulses Neurological: nl mental status, nl speech, nl strength Skin: No rash or lesions Results Result Diagram: 10/22/18 0433 10/23/18 0442 ARIELLE VAZQUEZ NP Oct 23, 2018 16:57
--- NOTE | 2018-10-23 18:13 | CONS ---
Assessment/Plan Assessment/Plan Assessment/Plan (Daily) Assessment/Plan (Daily) IMPRESSION: 1. Acute diverticulitis. Improving 2. Pyelonephritis. 3. Possible colovesical fistula. PLAN: 1. To continue antibiotic. 2. Clear liquid diet Consultation Date/Type/Reason Admit Date/Time Oct 21, 2018 at 01:48 Initial Consult Date 10/22/18 Requesting Provider: DIVINA MUNSON MD Date/Time of Note DATE: 10/23/18 TIME: 18:12 24 HR Interval Summary Constitutional: improved Exam/Review of Systems Exam Vitals Vital Signs Date Temp Pulse Resp B/P (MAP) Pulse Ox O2 O2 Flow FiO2 Time Delivery Rate 10/23/18 98.1 55 18 131/83 98 Room Air 14:54 (99) Intake and Output 10/22/18 10/22/18 10/23/18 1515:00 23:00 07:00 IntakeIntake Total 300 ml 971.1455 ml 1225 ml OutputOutput Total 500 ml BalanceBalance 300 ml 971.1455 ml 725 ml Constitutional: alert, oriented, well developed Psych: no complaints, nl mood/affect Head: normocephalic, atraumatic Eyes: nl conjunctiva, EOMI, nl lids, nl sclera, PERRL ENMT: nl external ears & nose, nl lips & teeth, nl nasal mucosa & septum Neck: supple, non-tender Respiratory: clear to auscultation, normal air movement Cardiovascular: regular rate and rhythm, nl pulses Gastrointestinal: soft, nl liver, spleen, non-tender Musculoskeletal: nl extremities to inspection, nl gait and stance Extremities: normal pulses Neurological: [employer] II-XII intact, nl mental status, nl speech, nl strength Skin: nl turgor; No rash or lesions Lymph: nl lymph nodes Results Result Diagram: 10/22/18 0433 10/23/18 0442 Results 24hrs Laboratory Tests Test 10/23/18 04:42 Sodium Level 140 Potassium Level 3.5 Chloride Level 107 Carbon Dioxide Level 29 Anion Gap 4 L Blood Urea Nitrogen 8 Creatinine 0.84 Est Glomerular Filtrat Rate mL/min > 60 Glucose Level 107 Calcium Level 8.2 L Phosphorus Level 3.1 Magnesium Level 1.8 Medications Medication Current Medications Dextrose/Sodium Chloride 1,000 ml @ 75 mls/hr [id number] IV Last administered on 10/23/18 08:46; Admin Dose 75 MLS/HR; Start 10/21/18 at 05:00 Pantoprazole (Protonix Iv) 40 mg DAILY@06 IV Last administered on 10/23/18 05:04; Admin Dose 40 MG; Start 10/21/18 at 06:00 Acetaminophen (Tylenol Tab) 650 mg Q6H PRN PO MILD PAIN(1-3)OR ELEVATED TEMP; Start 10/21/18 at 05:00 Piperacillin Sod/ Tazobactam Sod 100 ml @ 200 mls/hr Q6 IVPB Last administered on 10/23/18 17:29; Admin Dose 200 MLS/HR; Start 10/21/18 at 06:00 Metronidazole 100 ml @ 100 mls/hr Q8 IVPB Last administered on 10/23/18 14:37; Admin Dose 100 MLS/HR; Start 10/21/18 at 06:00 Morphine Sulfate (morphine) 2 mg Q4H PRN IV SEVERE PAIN LEVEL 7-10; Start 10/21/18 at 05:00 Morphine Sulfate (morphine) 4 mg Q4H PRN IV SEVERE PAIN LEVEL 7-10 Last administered on 10/23/18 13:49; Admin Dose 4 MG; Start 10/21/18 at 05:00 Ondansetron HCl (Zofran Inj) 4 mg Q6H PRN IV NAUSEA AND/OR VOMITING; Start 10/21/18 at 05:00 Fat Emulsion Intravenous 250 ml @ 10.4 mls/hr DAILY IV Last administered on 10/23/18 13:10; Admin Dose 10.4 MLS/HR; Start 10/22/18 at 13:00 EM GIORDANO MD Oct 23, 2018 18:13
[2018-10-23 19:15] VITALS: BP 139/90; PULSE 56; RESP 20
[2018-10-24 02:00] VITALS: BP 135/84; PULSE 56; RESP 20
[2018-10-24] MEDS: PIPER-TAZO 3.375 GM IV (PMX) 100 ML IVPB SCH ×4 (05:07→23:56)
[2018-10-24] MEDS: PANTOPRAZOLE 40 MG INJ IV SCH (05:08)
[2018-10-24] MEDS: metroNIDAZOLE 500 MG/NS (PMX) 100 ML IVPB SCH ×3 (05:08→21:22)
[2018-10-24] MEDS ORDERED: POTASSIUM CHLORIDE (SR) 20 MEQ TAB PO STA (07:44)
--- NOTE | 2018-10-24 08:09 | CONS ---
Consult Date/Type/Reason Admit Date/Time Oct 21, 2018 at 01:48 Initial Consult Date 10/21/18 Type of Consultation: Urology Reason for Consultation Acute diverticulitis was possible colovesical fistula Requesting Provider: DIVINA MUNSON MD Date/Time of Note DATE: 10/24/18 TIME: 08:06 Subjective Patient states that he is feeling better, he has no pain and he is voiding well. There is no pneumaturia or fecaluria Objective Vitals Vital Signs Date Temp Pulse Resp B/P (MAP) Pulse Ox O2 O2 Flow FiO2 Time Delivery Rate 10/24/18 98.0 56 20 135/84 99 Room Air 02:00 (101) Intake and Output 10/23/18 10/23/18 10/24/18 1515:00 23:00 07:00 IntakeIntake Total 625 ml 1460 ml 1720 ml OutputOutput Total 400 ml 1000 ml BalanceBalance 225 ml 1460 ml 720 ml Exam The abdomen is soft. His urine is clear. Urine culture showed no growth after 48 hours Results/Medications Result Diagram: 10/24/18 0428 10/24/18 0428 Results 24 hrs Laboratory Tests Test 10/24/18 04:28 White Blood Count 6.2 Red Blood Count 4.05 L Hemoglobin 12.9 L Hematocrit 38.4 L Mean Corpuscular Volume 94.8 Mean Corpuscular Hemoglobin 31.9 Mean Corpuscular Hemoglobin Concent 33.6 Red Cell Distribution Width 12.3 Platelet Count 253 # Mean Platelet Volume 10.5 H Immature Granulocytes % 1.000 H Neutrophils % 54.7 Lymphocytes % 30.3 Monocytes % 9.7 Eosinophils % 3.5 Basophils % 0.8 Nucleated Red Blood Cells % 0.0 Immature Granulocytes # 0.060 H Neutrophils # 3.4 Lymphocytes # 1.9 Monocytes # 0.6 Eosinophils # 0.2 Basophils # 0.1 Nucleated Red Blood Cells # 0.0 Sodium Level 141 Potassium Level 3.4 L Chloride Level 106 Carbon Dioxide Level 30 Anion Gap 5 Blood Urea Nitrogen 5 L Creatinine 0.82 Est Glomerular Filtrat Rate mL/min > 60 Glucose Level 100 Calcium Level 8.5 Phosphorus Level 3.2 Magnesium Level 1.7 Total Bilirubin 0.4 Direct Bilirubin 0.00 Indirect Bilirubin 0.4 Aspartate Amino Transf (AST/SGOT) 37 Alanine Aminotransferase (ALT/SGPT) 36 Alkaline Phosphatase 60 Total Protein 6.3 Albumin 3.2 L Globulin 3.10 Albumin/Globulin Ratio 1.03 Medications Current Medications Pantoprazole (Protonix Iv) 40 mg DAILY@06 IV Last administered on 10/24/18at 05:08; Admin Dose 40 MG; Start 10/21/18 at 06:00 Acetaminophen (Tylenol Tab) 650 mg Q6H PRN PO MILD PAIN(1-3)OR ELEVATED TEMP; Start 10/21/18 at 05:00 Piperacillin Sod/ Tazobactam Sod 100 ml @ 200 mls/hr Q6 IVPB Last administered on 10/24/18at 05:07; Admin Dose 200 MLS/HR; Start 10/21/18 at 06:00 Metronidazole 100 ml @ 100 mls/hr Q8 IVPB Last administered on 10/24/18at 05:08; Admin Dose 100 MLS/HR; Start 10/21/18 at 06:00 Morphine Sulfate (morphine) 2 mg Q4H PRN IV SEVERE PAIN LEVEL 7-10; Start 10/21/18 at 05:00 Morphine Sulfate (morphine) 4 mg Q4H PRN IV SEVERE PAIN LEVEL 7-10 Last administered on 10/23/18at 22:45; Admin Dose 4 MG; Start 10/21/18 at 05:00 Ondansetron HCl (Zofran Inj) 4 mg Q6H PRN IV NAUSEA AND/OR VOMITING; Start 10/21/18 at 05:00 Fat Emulsion Intravenous 250 ml @ 10.4 mls/hr DAILY IV Last administered on 10/23/18at 13:10; Admin Dose 10.4 MLS/HR; Start 10/22/18 at 13:00 Assessment/Plan Hospital Course (Demo Recall) 48-year-old male presented to the emergency room at [facility] with abdominal pain located in the left lower quadrant and radiating toward the left flank area. Patient describes the pain as 10 out of 10 and is associated with the nausea and vomiting as well as diarrhea. The patient underwent a CT scan of the abdomen and pelvis and that was reported as mild to moderate sigmoid diverticulitis and there is resultant colovesical fistula with scattered intramural air bubbles along the superior bladder wall and moderate irregular bladder wall thickening also areas of decreased enhancement within the left kidney with mild perinephric stranding suggestive of pyelonephritis. The patient was transferred to [facility] because of his insurance. Patient is feeling better his pain is much less and he is voiding well. There is no dysuria pneumaturia or fecaluria. Urologically he is doing well. As far as his diverticulitis management the GI and GS colleagues will decide about whether he needs surgery or not BINDU MCCAULEY MD Oct 24, 2018 08:09
--- NOTE | 2018-10-24 08:31 | PN ---
Date/Time of Note Date/Time of Note DATE: 10/24/18 TIME: 08:29 Assessment/Plan Lines/Catheters IV Catheter Type (from [facility]): Peripheral IV Waldron in Place (from [facility]): No Assessment/Plan Chief Complaint/Hosp Course 1. Diverticulitis with colovesical fistula: Had lengthy discussion with patient regarding surgical intervention, at this time he prefers conservative management and avoid surgery. -antibiotics per GI/ -Diverticulitis management per GI -Diet advance okay from surgical standpoint -close monitoring 2. Normocytic normochromic anemia: -Monitor and transfuse as needed 3. Hypokalemia: normalized 4. Abnormal UA: 2/ #1; urine appearance improving -abx per sensitivity -frequent bladder emptying/cath care -As above 5. Overweight BMI: 27 -diet and exercise optimization -encourage weight loss Thank you. Patient seen and examined in collaboration with Dr. Ventura Jamison. Subjective 24 Hr Interval Summary Continues to feel much improved. No pneumaturia, fecaluria. Urine continuing to clear up. Tolerating liquid diet. Normal subjective Exam/Review of Systems Vital Signs Vitals Vital Signs Date Temp Pulse Resp B/P (MAP) Pulse Ox O2 O2 Flow FiO2 Time Delivery Rate 10/24/18 98.0 56 20 135/84 99 Room Air 02:00 (101) Intake and Output 10/23/18 10/23/18 10/24/18 1515:00 23:00 07:00 IntakeIntake Total 625 ml 1460 ml 1720 ml OutputOutput Total 400 ml 1000 ml BalanceBalance 225 ml 1460 ml 720 ml Exam Free Text/Dictation Constitutional: alert, oriented Psych: nl mood/affect; No anxiety Head: normocephalic, atraumatic Eyes: nl conjunctiva, EOMI, nl lids, nl sclera ENMT: nl external ears & nose, nl lips & teeth, mucosa pink and moist Neck: supple, non-tender; No jvd Respiratory: normal air movement; No congested cough Cardiovascular: regular rate and rhythm, nl pulses; No edema Gastrointestinal: soft, tender (Minimal left lower quadrant-much improved); minimal distended No firm Musculoskeletal: nl extremities to inspection, nl gait and stance Extremities: normal pulses Neurological: nl mental status, nl speech, nl strength Skin: No rash or lesions Results Result Diagram: 10/24/18 0428 10/24/18 0428 ARIELLE VAZQUEZ NP Oct 24, 2018 08:31
[2018-10-24 08:52] VITALS: BP 124/83; PULSE 60; RESP 20
--- NOTE | 2018-10-24 09:10 | PN ---
Date/Time of Note Date/Time of Note DATE: 10/24/18 TIME: 09:08 Assessment/Plan VTE Prophylaxis Risk score (from Ns)>0 risk: 1 SCD applied (from Ns): Yes Pharmacological prophylaxis: NA/contraindicated Pharm contraindication: low risk/ambulating Lines/Catheters IV Catheter Type (from [facility]): Peripheral IV Urinary Cath still in place: No Assessment/Plan Assessment/Plan is is a 48-year-old male who presented with 1 acute abdominal pain, likely secondary to mild to moderate sigmoid diverticulitis. 2. Air bubbles in the urine with CT scan findings of colovesical fistula. with diverticulitis 3. Pyelonephritis on the left side with positive urinalysis. 4. History of kidney stones. 5. Hypokalemia 6 UTI plan -he is refusing surgery. -Initially spoke to surgery who wanted to get a repeat CT of the abdomen and pelvis to see if the fistula has closed however on clinical examination per per Dr. Jamison recommended starting the patient on clear liquid diet weekly patient had improved> now surgery wants to advance the diet -cw with Zosyn and Flagyl -dc fat/lipids - FU GI/Surgery/urology recs - replete K -Monitor for pneumaturia Result Diagram: 10/24/188 10/24/18 0428 Results 24hrs Laboratory Tests Test 10/24/18 04:28 White Blood Count 6.2 Red Blood Count 4.05 L Hemoglobin 12.9 L Hematocrit 38.4 L Mean Corpuscular Volume 94.8 Mean Corpuscular Hemoglobin 31.9 Mean Corpuscular Hemoglobin Concent 33.6 Red Cell Distribution Width 12.3 Platelet Count 253 # Mean Platelet Volume 10.5 H Immature Granulocytes % 1.000 H Neutrophils % 54.7 Lymphocytes % 30.3 Monocytes % 9.7 Eosinophils % 3.5 Basophils % 0.8 Nucleated Red Blood Cells % 0.0 Immature Granulocytes # 0.060 H Neutrophils # 3.4 Lymphocytes # 1.9 Monocytes # 0.6 Eosinophils # 0.2 Basophils # 0.1 Nucleated Red Blood Cells # 0.0 Sodium Level 141 Potassium Level 3.4 L Chloride Level 106 Carbon Dioxide Level 30 Anion Gap 5 Blood Urea Nitrogen 5 L Creatinine 0.82 Est Glomerular Filtrat Rate mL/min > 60 Glucose Level 100 Calcium Level 8.5 Phosphorus Level 3.2 Magnesium Level 1.7 Total Bilirubin 0.4 Direct Bilirubin 0.00 Indirect Bilirubin 0.4 Aspartate Amino Transf (AST/SGOT) 37 Alanine Aminotransferase (ALT/SGPT) 36 Alkaline Phosphatase 60 Total Protein 6.3 Albumin 3.2 L Globulin 3.10 Albumin/Globulin Ratio 1.03 Subjective 24 Hr Interval Summary Free Text/Dictation Patient is doing well denies any abdominal pain Exam/Review of Systems Exam Vitals Vital Signs Date Temp Pulse Resp B/P (MAP) Pulse Ox O2 O2 Flow FiO2 Time Delivery Rate 10/24/18 98.0 60 20 124/83 97 Room Air 08:52 (97) Intake and Output 10/23/18 10/23/18 10/24/18 1515:00 23:00 07:00 IntakeIntake Total 625 ml 1460 ml 1720 ml OutputOutput Total 400 ml 1000 ml BalanceBalance 225 ml 1460 ml 720 ml Exam Exam GENERAL: The patient is awake, alert, oriented, does not appear to be in any acute distress. HEENT: Pupils are equal, round, reactive to light. NECK: Supple. No JVD. HEART: Regular rate, rhythm. LUNGS: Clear to auscultate bilaterally. ABDOMEN: Some tenderness present at the left lower quadrant and in the epigast silvia region resolved. Bowel sounds are present. EXTREMITIES: No clubbing, cyanosis or edema. SKIN: The patient has a left humerus surgical scar and multiple tattoos on the chest wall and the back. Results Results 24hrs Laboratory Tests Test 10/24/18 04:28 White Blood Count 6.2 Red Blood Count 4.05 L Hemoglobin 12.9 L Hematocrit 38.4 L Mean Corpuscular Volume 94.8 Mean Corpuscular Hemoglobin 31.9 Mean Corpuscular Hemoglobin Concent 33.6 Red Cell Distribution Width 12.3 Platelet Count 253 # Mean Platelet Volume 10.5 H Immature Granulocytes % 1.000 H Neutrophils % 54.7 Lymphocytes % 30.3 Monocytes % 9.7 Eosinophils % 3.5 Basophils % 0.8 Nucleated Red Blood Cells % 0.0 Immature Granulocytes # 0.060 H Neutrophils # 3.4 Lymphocytes # 1.9 Monocytes # 0.6 Eosinophils # 0.2 Basophils # 0.1 Nucleated Red Blood Cells # 0.0 Sodium Level 141 Potassium Level 3.4 L Chloride Level 106 Carbon Dioxide Level 30 Anion Gap 5 Blood Urea Nitrogen 5 L Creatinine 0.82 Est Glomerular Filtrat Rate mL/min > 60 Glucose Level 100 Calcium Level 8.5 Phosphorus Level 3.2 Magnesium Level 1.7 Total Bilirubin 0.4 Direct Bilirubin 0.00 Indirect Bilirubin 0.4 Aspartate Amino Transf (AST/SGOT) 37 Alanine Aminotransferase (ALT/SGPT) 36 Alkaline Phosphatase 60 Total Protein 6.3 Albumin 3.2 L Globulin 3.10 Albumin/Globulin Ratio 1.03 Medications Medication Current Medications Pantoprazole (Protonix Iv) 40 mg DAILY@06 IV Last administered on 10/24/18at 05:08; Admin Dose 40 MG; Start 10/21/18 at 06:00 Acetaminophen (Tylenol Tab) 650 mg Q6H PRN PO MILD PAIN(1-3)OR ELEVATED TEMP; Start 10/21/18 at 05:00 Piperacillin Sod/ Tazobactam Sod 100 ml @ 200 mls/hr Q6 IVPB Last administered on 10/24/18at 05:07; Admin Dose 200 MLS/HR; Start 10/21/18 at 06:00 Metronidazole 100 ml @ 100 mls/hr Q8 IVPB Last administered on 10/24/18at 05:08; Admin Dose 100 MLS/HR; Start 10/21/18 at 06:00 Morphine Sulfate (morphine) 2 mg Q4H PRN IV SEVERE PAIN LEVEL 7-10; Start 10/21/18 at 05:00 Morphine Sulfate (morphine) 4 mg Q4H PRN IV SEVERE PAIN LEVEL 7-10 Last administered on 10/23/18at 22:45; Admin Dose 4 MG; Start 10/21/18 at 05:00 Ondansetron HCl (Zofran Inj) 4 mg Q6H PRN IV NAUSEA AND/OR VOMITING; Start 10/21/18 at 05:00 DIVINA MUNSON MD Oct 24, 2018 09:10
--- NOTE | 2018-10-24 09:20 | CONS ---
Assessment/Plan Assessment/Plan Hospital Course (Demo Recall) 48 yo male 1. Acute diverticulitis. -resolved 2. Pyelonephritis. -improved 3. Colovesical fistula. -conservative management per surgery PLAN: Continue abx Advance diet to soft if tolerated, surgery also okay with advancing to soft diet Pt examined and plan of care d/w Dr. Joy Consultation Date/Type/Reason Admit Date/Time Oct 21, 2018 at 01:48 Initial Consult Date 10/22/18 Requesting Provider: DIVINA MUNSON MD Date/Time of Note DATE: 10/24/18 TIME: 09:18 24 HR Interval Summary Free Text/Dictation Pt denies abdominal pain, nausea or vomiting. Denies fever and chills. States he has been tolerating clear liquids, no pain in LLQ. States he doesn't feel any " bubbles". One bm this am, brown liquid. No PTP of LLQ. WBC wnl. Exam/Review of Systems Exam Vitals Vital Signs Date Temp Pulse Resp B/P (MAP) Pulse Ox O2 O2 Flow FiO2 Time Delivery Rate 10/24/18 98.0 60 20 124/83 97 Room Air 08:52 (97) Intake and Output 10/23/18 10/23/18 10/24/18 1515:00 23:00 07:00 IntakeIntake Total 625 ml 1460 ml 1720 ml OutputOutput Total 400 ml 1000 ml BalanceBalance 225 ml 1460 ml 720 ml Constitutional: alert, oriented, well developed Psych: no complaints Head: normocephalic Eyes: nl sclera, PERRL ENMT: mucosa pink and moist Respiratory: clear to auscultation Cardiovascular: regular rate and rhythm Gastrointestinal: soft, non-tender, bowel sounds Neurological: nl mental status Results Result Diagram: 10/24/18 0428 10/24/18 0428 Results 24hrs Laboratory Tests Test 10/24/18 04:28 White Blood Count 6.2 Red Blood Count 4.05 L Hemoglobin 12.9 L Hematocrit 38.4 L Mean Corpuscular Volume 94.8 Mean Corpuscular Hemoglobin 31.9 Mean Corpuscular Hemoglobin Concent 33.6 Red Cell Distribution Width 12.3 Platelet Count 253 # Mean Platelet Volume 10.5 H Immature Granulocytes % 1.000 H Neutrophils % 54.7 Lymphocytes % 30.3 Monocytes % 9.7 Eosinophils % 3.5 Basophils % 0.8 Nucleated Red Blood Cells % 0.0 Immature Granulocytes # 0.060 H Neutrophils # 3.4 Lymphocytes # 1.9 Monocytes # 0.6 Eosinophils # 0.2 Basophils # 0.1 Nucleated Red Blood Cells # 0.0 Sodium Level 141 Potassium Level 3.4 L Chloride Level 106 Carbon Dioxide Level 30 Anion Gap 5 Blood Urea Nitrogen 5 L Creatinine 0.82 Est Glomerular Filtrat Rate mL/min > 60 Glucose Level 100 Calcium Level 8.5 Phosphorus Level 3.2 Magnesium Level 1.7 Total Bilirubin 0.4 Direct Bilirubin 0.00 Indirect Bilirubin 0.4 Aspartate Amino Transf (AST/SGOT) 37 Alanine Aminotransferase (ALT/SGPT) 36 Alkaline Phosphatase 60 Total Protein 6.3 Albumin 3.2 L Globulin 3.10 Albumin/Globulin Ratio 1.03 Medications Medication Current Medications Pantoprazole (Protonix Iv) 40 mg DAILY@06 IV Last administered on 10/24/18 05:08; Admin Dose 40 MG; Start 10/21/18 at 06:00 Acetaminophen (Tylenol Tab) 650 mg Q6H PRN PO MILD PAIN(1-3)OR ELEVATED TEMP; Start 10/21/18 at 05:00 Piperacillin Sod/ Tazobactam Sod 100 ml @ 200 mls/hr Q6 IVPB Last administered on 10/24/18at 05:07; Admin Dose 200 MLS/HR; Start 10/21/18 at 06:00 Metronidazole 100 ml @ 100 mls/hr Q8 IVPB Last administered on 10/24/18at 05:08; Admin Dose 100 MLS/HR; Start 10/21/18 at 06:00 Morphine Sulfate (morphine) 2 mg Q4H PRN IV SEVERE PAIN LEVEL 7-10; Start 10/21/18 at 05:00 Morphine Sulfate (morphine) 4 mg Q4H PRN IV SEVERE PAIN LEVEL 7-10 Last administered on 10/23/18at 22:45; Admin Dose 4 MG; Start 10/21/18 at 05:00 Ondansetron HCl (Zofran Inj) 4 mg Q6H PRN IV NAUSEA AND/OR VOMITING; Start 10/21/18 at 05:00 ADELSO COLON Oct 24, 2018 09:20
[2018-10-24] MEDS: morphine 2 MG INJ IV PRN ×2 (10:34→19:14)
[2018-10-24 15:07] VITALS: BP 116/70; PULSE 61; RESP 18
[2018-10-24 20:08] VITALS: BP 135/58; PULSE 56; RESP 20
[2018-10-24] MEDS: morphine 4 MG/ML VIAL IV PRN (23:56)
[2018-10-25 02:22] VITALS: BP 138/60; PULSE 60; RESP 20
[2018-10-25] MEDS: PIPER-TAZO 3.375 GM IV (PMX) 100 ML IVPB SCH ×2 (05:18→12:36)
[2018-10-25] MEDS: metroNIDAZOLE 500 MG/NS (PMX) 100 ML IVPB SCH ×2 (05:18→14:00)
[2018-10-25] MEDS: PANTOPRAZOLE 40 MG INJ IV SCH (05:19)
[2018-10-25 07:41] VITALS: BP 124/74; PULSE 56; RESP 20
--- NOTE | 2018-10-25 12:51 | DS ---
Date/Time of Note Date/Time of Note DATE: 10/25/18 TIME: 12:51 Discharge Summary Admission/Discharge Info Admit Date/Time Oct 21, 2018 at 01:48 Discharge Date/Time Patient Condition: Stable Consults Dr. Marrufo, urology, Dr Jamison, surgery, Dr Joy, Hospital Course A 48-year-old male with past medical history of kidney stones, presented to emergency department of [facility] on 10/20/2018 secondary to severe abdominal pain and left lower quadrant for the last 4 to 5 days. According to the patient, he has had history of kidney stones. He thought that the pain is because of kidney stones; however, pain was very sharp and very persistent. It was in the left lower quadrant and made him worried and came to the emergency department at [facility]. He has been having episodes of nausea, vomiting and diarrhea. According to the patient, he also noticed that he was having air bubbles through his urine. On arrival at [facility], his temperature was 100.7, pulse 106, respirations 20, blood pressure 141/87. The patient had labs which showed a potassium of 3.1, BUN of 14, creatinine 1.3. AST, ALT are normal. Lactate of 1.5. UA showed 100 WBC, 5200 RBCs consistent with UTI and hematuria. The patient also had CT of the abdomen and pelvis that showed mild to moderate sigmoid diverticulitis, has colovesical fistula and pyelonephritis on the left side. The patient was given Tylenol, IV Zofran, Toradol, morphine, Flagyl, Rocephin, Zosyn and was transferred here due to insurance reasons. PAST MEDICAL HISTORY: Significant for kidney stones, knee surgery and left humerus surgery. ALLERGIES: NONE. PAST SURGICAL HISTORY: Left humerus surgery. SOCIAL HISTORY: Occasionally drinks alcohol. Last drink was a week ago. Denies any smoking, any recreational drug use. ASSESSMENT AND PLAN: 1. This is a 48-year-old male who presented with acute abdominal pain, likely secondary to mild to moderate sigmoid diverticulitis. 2. Air bubbles in the urine with CT scan findings of colovesical fistula. 3. Pyelonephritis on the left side with positive urinalysis. 4. History of kidney stones. 5. History of hypokalemia. During hospitalization patient was NPO and on IV fluids . Dr Munoz managed pt. antibiotic therapy Fladyl and zosyn.. Pt was seen by other specialists. Dr. Marrufo was an urology specialist. He interpreted air bubble in urinary bladder as a colovesical fistula, Dr Jamison, surgery was called to evaluate fistula. He offered pt CT scan with contrast to see direct motion of contrast from colon to urinary bladder, but patient is refused. Pt is also refused surgical treatment. Dr Joy consulted pt on diverticulitis. We followed his recommendations of conservative management. Patient was on telemetry service. His pain was controlled. After few days of antibiotic therapy patient is clinically improved. Patient was able to tolerate soft diet, was able to ambulate, and his abdominal pain is subsided. Pt was prepared to be discharged home. Plan of care was discussed with Dr. Recio. In stable condition patient was discharged. Patient was instructed to continue designated medications. Diet low residue and cassidy in fiber was discussed. Patient was instructed to see primary care provider in 1 week, and GI specialists. All questions were answered and all problems were addressed. Home Meds Active Scripts Levofloxacin* (Levofloxacin*) 500 Mg Tablet, 500 MG PO DAILY for 5 Days, TAB Prov:SOFY PETERSON NP 10/25/18 Metronidazole* (Flagyl*) 500 Mg Tablet, 500 MG PO BID for 7 Days, TAB Prov:SOFY PETERSON NP 10/25/18 Follow-up Plan PCP 1 week off work 1 week Primary Care Provider Not On Staff Doctor Time spent on discharge: < 30 minutes Pending Labs Laboratory Tests Test 10/25/18 04:43 Sodium Level 140 mmol/L (135-144) Potassium Level 4.3 mmol/L (3.5-5.1) Chloride Level 106 mmol/L (97-110) Carbon Dioxide Level 31 mmol/L (21-31) Anion Gap 3 (5-13) Blood Urea Nitrogen 6 mg/dl (7-20) Creatinine 0.89 mg/dl (0.61-1.24) Est Glomerular Filtrat Rate mL/min > 60 mL/min (>60) Glucose Level 93 mg/dl (70-220) Calcium Level 9.2 mg/dl (8.4-10.2) SOFY PETERSON NP Oct 25, 2018 12:51
--- NOTE | 2018-10-25 12:56 | CONS ---
Consult Date/Type/Reason Admit Date/Time Oct 21, 2018 at 01:48 Initial Consult Date 10/21/18 Type of Consultation: Urology Reason for Consultation Acute diverticulitis and possible colovesical fistula Requesting Provider: DIVINA MUNSON MD Date/Time of Note DATE: 10/25/18 TIME: 12:54 Subjective Patient states that he is feeling better and has no pain. He is voiding well and has no dysuria Objective Vitals Vital Signs Date Temp Pulse Resp B/P (MAP) Pulse Ox O2 O2 Flow FiO2 Time Delivery Rate 10/25/18 97.9 56 20 124/74 97 Room Air 07:41 (91) Intake and Output 10/24/18 10/24/18 10/25/18 1515:00 23:00 07:00 IntakeIntake Total 400 ml 400 ml 300 ml OutputOutput Total 400 ml BalanceBalance 0 ml 400 ml 300 ml Exam Abdomen is soft there is no suprapubic tenderness. Urine culture showed no growth Results/Medications Result Diagram: 10/24/18 0428 10/25/18 0443 Results 24 hrs Laboratory Tests Test 10/25/18 04:43 Sodium Level 140 Potassium Level 4.3 Chloride Level 106 Carbon Dioxide Level 31 Anion Gap 3 L Blood Urea Nitrogen 6 L Creatinine 0.89 Est Glomerular Filtrat Rate mL/min > 60 Glucose Level 93 Calcium Level 9.2 Medications Current Medications Pantoprazole (Protonix Iv) 40 mg DAILY@06 IV Last administered on 10/25/18at 05:19; Admin Dose 40 MG; Start 10/21/18 at 06:00 Acetaminophen (Tylenol Tab) 650 mg Q6H PRN PO MILD PAIN(1-3)OR ELEVATED TEMP; Start 10/21/18 at 05:00 Piperacillin Sod/ Tazobactam Sod 100 ml @ 200 mls/hr Q6 IVPB Last administered on 10/25/18at 12:36; Admin Dose 200 MLS/HR; Start 10/21/18 at 06:00 Metronidazole 100 ml @ 100 mls/hr Q8 IVPB Last administered on 10/25/18at 05:18; Admin Dose 100 MLS/HR; Start 10/21/18 at 06:00 Morphine Sulfate (morphine) 2 mg Q4H PRN IV SEVERE PAIN LEVEL 7-10 Last administered on 10/24/18at 19:14; Admin Dose 2 MG; Start 10/21/18 at 05:00 Morphine Sulfate (morphine) 4 mg Q4H PRN IV SEVERE PAIN LEVEL 7-10 Last administered on 10/24/18at 23:56; Admin Dose 4 MG; Start 10/21/18 at 05:00 Ondansetron HCl (Zofran Inj) 4 mg Q6H PRN IV NAUSEA AND/OR VOMITING; Start 10/21/18 at 05:00 Assessment/Plan Hospital Course (Demo Recall) 48-year-old male presented to the emergency room at [facility] with abdominal pain located in the left lower quadrant and radiating toward the left flank area. Patient describes the pain as 10 out of 10 and is associated with the nausea and vomiting as well as diarrhea. The patient underwent a CT scan of the abdomen and pelvis and that was reported as mild to moderate sigmoid diverticulitis and there is resultant colovesical fistula with scattered intramural air bubbles along the superior bladder wall and moderate irregular bladder wall thickening also areas of decreased enhancement within the left kidney with mild perinephric stranding suggestive of pyelonephritis. The patient was transferred to [facility] because of his insurance. Patient is feeling better. He no longer has pain and is voiding well. Urine culture showed no growth in 48 hours. From a urological standpoint he may be discharged. BINDU MCCAULEY MD Oct 25, 2018 12:56
--- NOTE | 2018-10-25 12:57 | PDOCDIS ---
Discharge Instructions CONDITION [id number] Patient Condition: [id number] Stable ACTIVITY: [id number] Activity Restrictions: [id number] Slowly Increase Activity Rest between Activity Avoid heavy lifting FOLLOW UP/APPOINTMENTS Follow-up Plan PCP 1 week SOFY PETERSON NP Oct 25, 2018 12:57
--- NOTE | 2018-10-25 13:56 | CONS ---
Assessment/Plan Assessment/Plan Assessment/Plan (Daily) Assessment/Plan Hospital Course (Demo Recall) 48 yo male 1. Acute diverticulitis. -resolved 2. Pyelonephritis. -improved 3. Colovesical fistula. -conservative management per surgery PLAN: Continue abx Advance diet to soft if tolerated, surgery also okay with advancing to soft diet Complete the course of antibiotic for the next 7 days Colonoscopy after 6 weeks Consultation Date/Type/Reason Admit Date/Time Oct 21, 2018 at 01:48 Initial Consult Date 10/22/18 Requesting Provider: DIVINA MUNSON MD Date/Time of Note DATE: 10/25/18 TIME: 13:55 24 HR Interval Summary Constitutional: improved Exam/Review of Systems Exam Vitals Vital Signs Date Temp Pulse Resp B/P (MAP) Pulse Ox O2 O2 Flow FiO2 Time Delivery Rate 10/25/18 97.9 56 20 124/74 97 Room Air 07:41 (91) Intake and Output 10/24/18 10/24/18 10/25/18 1515:00 23:00 07:00 IntakeIntake Total 400 ml 400 ml 300 ml OutputOutput Total 400 ml BalanceBalance 0 ml 400 ml 300 ml Constitutional: alert, oriented, well developed Psych: no complaints, nl mood/affect Head: normocephalic, atraumatic Eyes: nl conjunctiva, EOMI, nl lids, nl sclera, PERRL ENMT: nl external ears & nose, nl lips & teeth, nl nasal mucosa & septum Neck: supple, non-tender Respiratory: clear to auscultation, normal air movement Cardiovascular: regular rate and rhythm, nl pulses Gastrointestinal: soft, nl liver, spleen, non-tender Musculoskeletal: nl extremities to inspection, nl gait and stance Extremities: normal pulses Neurological: [employer] II-XII intact, nl mental status, nl speech, nl strength Skin: nl turgor; No rash or lesions Lymph: nl lymph nodes Results Result Diagram: 10/24/18 0428 10/25/18 0443 Results 24hrs Laboratory Tests Test 10/25/18 04:43 Sodium Level 140 Potassium Level 4.3 Chloride Level 106 Carbon Dioxide Level 31 Anion Gap 3 L Blood Urea Nitrogen 6 L Creatinine 0.89 Est Glomerular Filtrat Rate mL/min > 60 Glucose Level 93 Calcium Level 9.2 Medications Medication Current Medications Pantoprazole (Protonix Iv) 40 mg DAILY@06 IV Last administered on 10/25/18 05:19; Admin Dose 40 MG; Start 10/21/18 at 06:00 Acetaminophen (Tylenol Tab) 650 mg Q6H PRN PO MILD PAIN(1-3)OR ELEVATED TEMP; Start 10/21/18 at 05:00 Piperacillin Sod/ Tazobactam Sod 100 ml @ 200 mls/hr Q6 IVPB Last administered on 10/25/18at 12:36; Admin Dose 200 MLS/HR; Start 10/21/18 at 06:00 Metronidazole 100 ml @ 100 mls/hr Q8 IVPB Last administered on 10/25/18at 05:18; Admin Dose 100 MLS/HR; Start 10/21/18 at 06:00 Morphine Sulfate (morphine) 2 mg Q4H PRN IV SEVERE PAIN LEVEL 7-10 Last administered on 10/24/18at 19:14; Admin Dose 2 MG; Start 10/21/18 at 05:00 Morphine Sulfate (morphine) 4 mg Q4H PRN IV SEVERE PAIN LEVEL 7-10 Last administered on 10/24/18at 23:56; Admin Dose 4 MG; Start 10/21/18 at 05:00 Ondansetron HCl (Zofran Inj) 4 mg Q6H PRN IV NAUSEA AND/OR VOMITING; Start 10/21/18 at 05:00 EM GIORDANO MD Oct 25, 2018 13:56
[2018-10-25 14:25] VITALS: BP 126/86; PULSE 63; RESP 20
--- NOTE | 2018-10-25 14:39 | PN ---
Date/Time of Note Date/Time of Note DATE: 10/25/18 TIME: 14:37 Assessment/Plan Lines/Catheters IV Catheter Type (from [facility]): Saline Lock [place] in Place (from [facility]): No Assessment/Plan Chief Complaint/Hosp Course 1. Diverticulitis with colovesical fistula: Had lengthy discussion with patient regarding surgical intervention, at this time he prefers conservative management and avoid surgery. -antibiotics per GI/ -Diverticulitis management per GI -dc ok from surgical standpoint. Will need f/u w gi and gu. Patient can also follow with our service if he elects to have surgical intervention. 2. Normocytic normochromic anemia: -Monitor and transfuse as needed 3. Hypokalemia: normalized 4. Abnormal UA: 2/2 #1; urine appearance improving -abx per sensitivity -frequent bladder emptying/cath care -As above 5. Overweight BMI: 27 -diet and exercise optimization -encourage weight loss Thank you. Patient seen and examined in collaboration with Dr. Ventura Jamison. Subjective 24 Hr Interval Summary Tolerated regular diet. No pneumaturia. No fevers, chills, sob, congested cough, cp, palpitations, mallory, dizziness, n/v/d/dysuria. Exam/Review of Systems Vital Signs Vitals Vital Signs Date Temp Pulse Resp B/P (MAP) Pulse Ox O2 O2 Flow FiO2 Time Delivery Rate 10/25/18 98.2 63 20 126/86 99 Room Air 14:25 (99) Intake and Output 10/24/18 10/24/18 10/25/18 1515:00 23:00 07:00 IntakeIntake Total 400 ml 400 ml 300 ml OutputOutput Total 400 ml BalanceBalance 0 ml 400 ml 300 ml Exam Free Text/Dictation Constitutional: alert, oriented Psych: nl mood/affect; No anxiety Head: normocephalic, atraumatic Eyes: nl conjunctiva, EOMI, nl lids, nl sclera ENMT: nl external ears & nose, nl lips & teeth, mucosa pink and moist Neck: supple, non-tender; No jvd Respiratory: normal air movement; No congested cough Cardiovascular: regular rate and rhythm, nl pulses; No edema Gastrointestinal: soft, tender (Minimal left lower quadrant-much improved); min distended (improved) No firm Musculoskeletal: nl extremities to inspection, nl gait and stance Extremities: normal pulses Neurological: nl mental status, nl speech, nl strength Skin: No rash or lesions Results Result Diagram: 10/24/18 0428 10/25/18 0443 ARIELLE VAZQUEZ NP Oct 25, 2018 14:39
== END 2018-10-25 15:56 | disposition home or self-care (01) | DRG 392 ==
LOC: MS1 01:48
PROVIDERS: ADMIT Internal Medicine Nephrology; ATTEND Internal Medicine Nephrology
DX: K57.32 Diverticulitis of large intestine without perforation or abscess without bleeding (principal); N32.1 Vesicointestinal fistula; N12 Tubulo-interstitial nephritis, not specified as acute or chronic; E66.3 Overweight; E87.6 Hypokalemia; Z68.27 Body mass index [BMI] 27.0-27.9, adult; Z87.442 Personal history of urinary calculi
CPT/HCPCS: 80048; 80053; 81001; 83735; 84100; 85025; 87086; C9113; J2270; J2543; J7042; J7050; Q9967